=== PATIENT | female | born 2005 | race Caucasian/White ===

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

== ENCOUNTER 2023-06-14 09:36 | Emergency (ER) | payer OTHER ==
[~2023-06-14] VITALS: Ht 158.8 cm; Wt 58.1 kg
[2023-06-14 09:43] VITALS: BP 113/75; PULSE 64; RESP 18; TEMP 98.5; O2SAT 98
[2023-06-14 10:52] VITALS: BP 113/75; PULSE 64; RESP 18; TEMP 98.5; O2SAT 98
== END 2023-06-14 10:52 | disposition home or self-care (01) ==
LOC: MED 09:36
DX: S61.032A Puncture wound without foreign body of left thumb without damage to nail, initial encounter (principal); F17.200 Nicotine dependence, unspecified, uncomplicated; F12.90 Cannabis use, unspecified, uncomplicated; Z72.89 Other problems related to lifestyle; W23.0XXA Caught, crushed, jammed, or pinched between moving objects, initial encounter; Y93.89 Activity, other specified; Y92.89 Other specified places as the place of occurrence of the external cause; Y99.8 Other external cause status
CPT/HCPCS: 73140; 99283

== ENCOUNTER 2023-12-15 19:51 | Emergency (ER) | payer OTHER ==
[~2023-12-15] VITALS: Ht 165.1 cm; Wt 56.7 kg
[2023-12-15 20:26] VITALS: BP 103/62; PULSE 88; RESP 16; TEMP 97.3
[2023-12-15] MEDS: NACL 0.9% 1,000 ML IV ONE (20:56)
[2023-12-15] MEDS: ONDANSETRON 4 MG/2 ML VIAL IVP ONE (21:01)
[2023-12-15 21:25] LABS: BASOPHILS # (AUTO) 0.1 K/uL (0.00-0.22); BASOPHILS % (AUTO) 0.9 % (0.0-2.0); EOSINOPHILS % (AUTO) 0.3 % (0.0-4.0); HEMATOCRIT 39.4 % (36-48); HEMOGLOBIN 13.3 g/dL (12.0-16.0); LYMPHOCYTES # (AUTO) 1.3 K/uL (2.5-16.5); LYMPHOCYTES % (AUTO) 16.5 % (20.5-51.1); MEAN CORPUSCULAR HEMOGLOBIN 30 pg (27-31); MEAN CORPUSCULAR HGB CONC 34 g/dL (33-37); MEAN CORPUSCULAR VOLUME 87.7 fL (80-94); MONOCYTES # (AUTO) 0.6 K/uL (0.8-1.0); MONOCYTES % (AUTO) 8.2 % (1.7-9.3); NEUTROPHILS # (AUTO) 5.7 K/uL (1.8-7.7); NEUTROPHILS % (AUTO) 74.1 % (42.2-75.2); PLATELET COUNT (AUTO) 190 K/uL (140-450); RED BLOOD CELL COUNT(AUTO) 4.49 MIL/uL (4.20-5.40); RED CELL DISTRIBUTION WIDTH 12.8 % (11.6-13.7); WHITE BLOOD COUNT (AUTO) 7.7 K/uL (4.5-11.0)
[2023-12-15 21:39] LABS: ANION GAP 15.3 (8-16); CALCIUM 8.2 mg/dL (8.5-10.1); CREATININE 0.7 mg/dL (0.6-1.3); POTASSIUM 3.3 mmol/L (3.5-5.1)
[2023-12-15 21:45] LABS: ALANINE AMINOTRANSFERASE 25 U/L (12-78); ALBUMIN 3.8 g/dL (3.4-5.0); ALCOHOL, BLOOD 293 mg/dL (<10); ALKALINE PHOSPHATASE 74 U/L (50-136); ASPARTATE AMINOTRANSFERASE 24 U/L (15-37); BILIRUBIN,DIRECT 0.1 mg/dL (0.0-0.3); TOTAL BILIRUBIN 0.2 mg/dL (0.0-1.0); TOTAL PROTEIN, SERUM 7.3 g/dL (6.4-8.2)
[2023-12-15 21:46] LABS: ACETAMINOPHEN < 0.5 ug/ml (10-30); SALICYLATE < 2.8 mg/dL (2.8-20.0)
[2023-12-15] MEDS ORDERED: WATER STERILE 10 ML MC ONE (22:22)
[2023-12-15] MEDS: ZIPRASIDONE MESYLATE 20 MG/ML VIAL IM ONE (22:36)
[2023-12-15 23:01] VITALS: TEMP 97.3
[2023-12-16 04:53] VITALS: BP 125/68; PULSE 79; RESP 14; O2SAT 99
== END 2023-12-16 05:30 | disposition home or self-care (01) ==
LOC: MED 19:51
DX: S80.12XA Contusion of left lower leg, initial encounter (principal); S50.11XA Contusion of right forearm, initial encounter; F10.129 Alcohol abuse with intoxication, unspecified; Y90.8 Blood alcohol level of 240 mg/100 ml or more; V89.2XXA Person injured in unspecified motor-vehicle accident, traffic, initial encounter; Y93.89 Activity, other specified; Y92.410 Unspecified street and highway as the place of occurrence of the external cause; Y99.8 Other external cause status
CPT/HCPCS: 36415; 70450; 71045; 80048; 80076; 84703; 85025; 93005; 96361; 96372; 96374; 99285; G0480; G0482; J2405; J3486; J7030

== ENCOUNTER 2024-01-02 12:38 | Emergency (ER) | payer OTHER ==
[~2024-01-02] VITALS: Ht 160 cm; Wt 61.2 kg
[2024-01-02 13:11] VITALS: BP 96/64; PULSE 69; RESP 20; TEMP 98.3; O2SAT 99
== END 2024-01-02 14:47 | disposition home or self-care (01) ==
LOC: MED 12:38
DX: S52.611A Displaced fracture of right ulna styloid process, initial encounter for closed fracture (principal); Z79.899 Other long term (current) drug therapy; X58.XXXA Exposure to other specified factors, initial encounter; Y93.89 Activity, other specified; Y92.89 Other specified places as the place of occurrence of the external cause; Y99.8 Other external cause status
CPT/HCPCS: 29105; 99283